=== PATIENT | male | born 1940 | race African-American/Black ===

== ENCOUNTER 2016-08-19 11:46 | Inpatient (IN) ==
[2016-08-19] MEDS ORDERED: VANCOMYCIN INJ 1,000 MG in SODIUM CHLORIDE 0.9% 250 ML IV STA (12:28)
[2016-08-19] MEDS ORDERED: VANCOMYCIN 1,000 MG VIAL ONE (12:32)
[2016-08-19] MEDS ORDERED: SODIUM CHLORIDE 0.9% 250 ML IV ONE (12:33)
[2016-08-19 12:38] LABS: Basophils % 0.3 % (0.0-0.8); Eosinophils # 0.1 10*3/uL (0.0-0.87); Eosinophils % 1.2 % (0.00-10.9); Hemoglobin 11.2 GM/DL (14.0-18.0); Immature Granulocytes % 0.8 %; Immature Granulocytes Absolute 0.06 #; Lymphocytes # 0.2 10*3/uL (1.4-4.0); Lymphocytes % 2.5 % (21.2-54.2); Mean Corpuscular HGB Conc 33.9 GM/DL (32-36); Mean Corpuscular Hemoglobin 32 PG (27-34); Mean Corpuscular Volume 95.1 FL (87-102); Mean Platelet Volume 12.5 FL (9.6-12.0); Monocytes # 0.5 10*3/uL (0.11-0.8); Monocytes % 6.4 % (1.7-12.7); Neutrophils # 6.6 10*3/uL (1.4-7.4); Neutrophils % 88.8 % (38.7-73.9); Platelet Count 129 T/CUMM (130-400); Red Blood Count 3.47 MC/CUMM (3.8-5.5); Red Cell Distribution Width 14.1 % (9.3-17.3); White Blood Count 7.5 T/CUMM (4-12)
--- NOTE | 2016-08-19 12:53 | XRay Report ---
XR chest 1V portable Indication: Preop respiratory evaluation. Comparison: None. Technique: Portable AP chest was performed. Findings: Heart size is mildly to moderately enlarged. [id number] ectasia of the thoracic aorta is demonstrated. Elevation left hemidiaphragm is noted. The lungs are clear for degree of inspiration and technique of image acquisition utilized. Bones and soft tissues demonstrate no evidence of acute pathology. Impression: 1. No evidence of acute pathology. 08/19/2016 12:49 PM PROCEDURE INTERPRETED AT [facility] DEPARTMENT OF RADIOLOGY Final Report Signed by: Dr. Boni Hannah
[2016-08-19 12:58] LABS: Hypochromasia Slight
[2016-08-19 13:06] LABS: Albumin 2.5 G/DL (3.4-5.0); Bilirubin,Total 0.9 MG/DL (0.2-1.0); Calcium 9.2 MG/DL (8.5-10.1); Osmolality,Calculated 297.8 MOS/KG (273-304); Potassium 5.2 MMOL/L (3.5-5.1)
[2016-08-19 13:08] LABS: Lactic Acid 1.6 MMOL/L (0.4-2.0)
--- NOTE | 2016-08-19 13:11 | Emergency Department Note ---
IEd Manpreet, am scribing for, and in the presence of, Ivory Mahan DO 12: 25. INegrito Debra, DO, personally performed the services described in this documentation, ascribed by Migue Ward in my presence, and it is both accurate and complete . Arrival - Arrival Chief Complaint: Extremity Problem ED Nursing Triage Note: pt has an infection to rt lower leg and to the bottom of lt foot. home health comes once a week to change dressing. pt states wounds have been like this for a week Mode of Arrival: Stretcher Limitations: No Limitations Source: Patient, Family - History of Present Illness HPI Narrative: Pt is a 76 y/o male, with PMHx of CAD, who presents to the ED with CC of infection to his right lower leg and bottom of the right foot. Pt states the wound has been like that for a week. Pt is visited by home health and changes the dressing once a week. Pt's accompanied by his niece who states the Pt was able to walk a month ago. No other pains/complaints reported to ED. Onset (ago): week(s) Consistency: constant Severity: moderate, severe Severity scale (1-10): 5 Allergies/Adverse Reactions: Allergies Allergy/AdvReac Type Severity Reaction Status Date / Time cephalexin [From Keflex] Allergy Unknown/Unable Verified 08/19/16 12:02 to obtain Penicillins Allergy Unknown/Unable Verified 08/19/16 12:02 to obtain Sulfa (Sulfonamide Allergy Unknown/Unable Verified 08/19/16 12:02 Antibiotics) to obtain Home Medications: Home Medications Medication Instructions Recorded Confirmed Type Aspirin EC Tab 81 mg PO DAILY 08/19/16 08/19/16 History Aspirin/Caffeine [Bc Powder Packet] 1 each PO QOTHER DAY PRN 08/19/16 08/19/16 History Colchicine [Colcrys] 0.6 mg PO DAILY 08/19/16 08/19/16 History Doxazosin Mesylate 8 mg PO DAILY 08/19/16 08/19/16 History Furosemide Tab [Lasix Tab] 40 mg PO DAILY 08/19/16 08/19/16 History Hydrocodone/Acetaminophen 1 - 2 each PO Q6H PRN 08/19/16 08/19/16 History [Hydrocodon-Acetaminoph 7.5-325] hydroCHLOROthiazide 25 mg PO DAILY 08/19/16 08/19/16 History [Hydrochlorothiazide] Review of System - Review of System 12 point system: reviewed and no additional remarkable complaints except as stated - Review of System Constitutional: Absent: chills, diaphoresis, fever Respiratory: Absent: cough, respiratory distress Cardiovascular: Absent: dyspnea on exertion Gastrointestinal: Absent: abdominal pain, nausea, vomiting Skin: Present: change in color, other (Infection to R lower leg). Absent: pruritus Neurological: Absent: headache, weakness, numbness, paresthesias Medical,Surgical,& Family Hx - Medical History Cardio: History of: CAD Rheumatology: History of;: Gout - Social History Smoking Status: Unknown if ever smoked Frequency of Alcohol Use: Unknown Type of Drug Use: Unknown Exam Vital Signs: Vital Signs Temperature 99 F 08/19/16 11:53 Pulse Rate 91 H 08/19/16 12:50 Respiratory Rate 17 08/19/16 12:50 Blood Pressure 155/108 08/19/16 12:50 O2 Sat by Pulse Oximetry 98 08/19/16 11:53 - General General appearance: alert - Head Head exam: Present: atraumatic, normocephalic, normal inspection - Eye Eye exam: Present: normal appearance, PERRL, EOMI - ENT ENT exam: Present: normal exam, normal oropharynx, mucous membranes moist, TM's normal bilaterally - Neck Neck exam: Present: normal inspection, full ROM, trachea midline. Absent: tenderness, thyromegaly - Chest Chest inspection: Present: normal inspection, symmetric chest wall rise. Absent : tenderness - Respiratory Respiratory exam: Present: normal lung sounds bilaterally. Absent: accessory muscle use, respiratory distress - Cardiovascular Cardiovascular exam: Present: regular rate, normal rhythm, normal heart sounds. Absent: murmur, rubs, gallop - Abdominal Exam Abdominal exam: Present: soft, normal bowel sounds. Absent: distention, diminished bowel sounds - Extremities Exam Extremities exam: Present: pedal edema (Bilat Pedal edema). Absent: normal inspection - Back Exam Back exam: Present: normal inspection, full ROM. Absent: tenderness - Neurological Exam Neurological exam: Present: alert, oriented X3, CN II-XII intact, reflexes normal - Psychiatric Psychiatric exam: Present: normal affect, normal mood - Skin Skin exam: Present: warm. Absent: normal color (Left LE infection) Results - Labs CBC & BMP: 08/19/16 12:19 08/19/16 12:19 Lab Results: I have reviewed the patients labs Labs: Laboratory Tests 08/19/16 12:19 WBC 7.5 RBC 3.47 L Hgb 11.2 L Hct 33.0 L Plt Count 129 L MPV 12.5 H Neut % (Auto) 88.8 H Lymph % (Auto) 2.5 L Lymph # (Auto) 0.2 L Laboratory Tests 08/19/16 08/19/16 12:19 12:19 Hypochromasia Slight Sodium 137 Potassium 5.2 H Chloride 104 Carbon Dioxide 20 L Anion Gap 18.2 H BUN 84 H Creatinine 2.50 H BUN/Creatinine Ratio 33.00 H ALT 12 L Total Protein 6.0 L Albumin 2.5 L Albumin/Globulin Ratio 0.7 L - Diagnostic Findings Procedure: Chest x-ray: report reviewed by me (No evidence of acute pathology.)
--- NOTE | 2016-08-19 13:19 | Ultrasound Report ---
US venous doppler LE BI Indication: Lower extremity swelling and pain. Comparison: None. Technique: Using a transcutaneous probe, grayscale, spectral Doppler, and color Doppler images of the bilateral lower extremity venous structures were captured and stored. Grayscale images prior to and following compression were obtained. Interrogated venous structures include the bilateral common femoral vein, superficial femoral vein (proximal, mid, and distal), and popliteal vein. Findings: There is no evidence of thrombus within the interrogated venous structures. The greater saphenous veins bilaterally ablated. The interrogated venous segments demonstrate presence of both color flow and spectral flow. Impression: 1. No evidence of venous thrombosis. 08/19/2016 1:16 PM PROCEDURE INTERPRETED AT [facility] DEPARTMENT OF RADIOLOGY Final Report Signed by: Dr. Boni Hannah
--- NOTE | 2016-08-19 14:53 | General Surgery Consult Note ---
Assessment and Plan - Time spent with patient Time spent with patient: Greater than 30 minutes (1) gangrene right lower extremity Status: Acute Assessment and plan: 76AAM w history of htn and gout admitted by hospitalist w gangrene and acute renal failure. ordered xr of bilateral lower ext to check for bone involvement and it is pending. pt will need surgery for debridement and possibly even amputation depending on how extensive the infection is. pt is allergic to pcn so vanc will be used for now. will consult pharmacy to assist w dosing. dr elam will see and examine pt and further recs to follow. Current Visit: Yes (2) Hyperkalemia Status: Acute Current Visit: Yes (3) Acute kidney injury Status: Acute Current Visit: Yes History of Present Illness Chief complaint: right leg pain History of present illness: Mr. Romano is a 76 year old male w history of htn and gout admitted by hospitalist service w gangrene of RLE, acute renal failure and hyperkalemia. pt states his foot has been hurting for about a week and he got to where he couldnt walk very well yesterday. he had a vein ablation by dr coronado about 2 years ago and has had trouble w BLE swelling since then. he went to see dr Reich at the wound center last week and he wanted to "put some boots on them". pt has a low grade fever, and mild tachycardia w htn 155/108 now. upon exam, he has a pungent odor coming from his RLE w wet gangrene, muliple wounds circumferentially, and necrotic areas to lower leg. he has erythema from foot to lower leg and chronic pitting edema. he's also noted to have an irregular heartbeat on exam that pt denies knowing about. his wbc are normal, anemia at 11 /32, platelets low at 129, K elevated at 5.2 and creatinine elevated at 2.5. pt denies SHEARER, dysphagia, blurred vision, dizziness, CP, SOB, abdominal pain, constipation or diarrhea. dr elam has been consulted to evaluate. Home Medications Medication Instructions Recorded Confirmed Type Aspirin EC Tab 81 mg PO DAILY 08/19/16 08/19/16 History Aspirin/Caffeine [Bc Powder Packet] 1 each PO QOTHER DAY PRN 08/19/16 08/19/16 History Colchicine [Colcrys] 0.6 mg PO DAILY 08/19/16 08/19/16 History Doxazosin Mesylate 8 mg PO DAILY 08/19/16 08/19/16 History Furosemide Tab [Lasix Tab] 40 mg PO DAILY 08/19/16 08/19/16 History Hydrocodone/Acetaminophen 1 - 2 each PO Q6H PRN 08/19/16 08/19/16 History [Hydrocodon-Acetaminoph 7.5-325] hydroCHLOROthiazide 25 mg PO DAILY 08/19/16 08/19/16 History [Hydrochlorothiazide] Allergies Allergy/AdvReac Type Severity Reaction Status Date / Time cephalexin [From Keflex] Allergy Unknown/Unable Verified 08/19/16 12:02 to obtain Penicillins Allergy Unknown/Unable Verified 08/19/16 12:02 to obtain Sulfa (Sulfonamide Allergy Unknown/Unable Verified 08/19/16 12:02 Antibiotics) to obtain Medical,Surgical,& Family Hx - Medical History Cardio: History of: CAD Rheumatology: History of;: Gout - Surgical History Cardiac Surgeries: Patient Denies: Cardiac Surgery - Family History Family History: Reports;: Family Heart Disease - Social History Smoking Status: Unknown if ever smoked Frequency of Alcohol Use: Unknown Type of Drug Use: Unknown Marital Status: Single Lives With:: Significant Other Functional capacity: uses cane/walker Review of systems: a complete 10 system ROS was obtained and pertinent positives and negatives per hpi Exam - Constitutional Vitals: Period Temp Pulse Resp BP Sys/Sherman Pulse Ox Last 24 Hr 99 F-99 F 91-102 17-18 133-159/83-108 98-98 Exam: 76AAM, NAD, alert and oriented chest clear cv irreg irreg abd soft nt ext w bilateral pitting edema, RLE w necrotic wound w wet gangrene, erythema, pulses unable to palpate Results - Labs CBC & BMP: 08/19/16 12:19 08/19/16 12:19 Lab Results: I have reviewed the past 24 hour labs - Diagnostic Findings Procedure: Chest x-ray: report reviewed by me (no acute process)
[2016-08-19] MEDS ORDERED: VANCOMYCIN INJ 1,000 MG in SODIUM CHLORIDE 0.9% 250 ML IV ONE (15:00)
--- NOTE | 2016-08-19 15:30 | XRay Report ---
XR tibia fibula BI Indication: Gangrene. Bilateral legs 2 views each, 4 views total: Extensive vascular calcinosis and extensive phleboliths are present throughout the soft tissues of both legs. Soft tissue swelling significant as well. No acute fracture shown on either side. No dislocation. No periostitis or bony destruction identified. Impression: Soft tissue swelling, vascular calcinosis and extensive calcified phleboliths throughout both legs. PROCEDURE INTERPRETED AT [facility] DEPARTMENT OF RADIOLOGY Final Report Signed by: Rajiv Lozada M.D.
--- NOTE | 2016-08-19 15:34 | XRay Report ---
XR foot 2V BI Indication: Gangrene. Right foot 2 views: Chronic erosive changes of the head of the fifth metatarsal is present. Primus varus hallux valgus is noted. Repetitive stress fracture of the midshaft second metatarsal is present. Entire foot is osteopenic, especially on the MTP joint line. Severe soft tissue swelling is present. Flattening of Boehler's angle noted. Impression: 1. Charcot joint changes of the foot. 2. Chronic erosion of the head of the fifth metatarsal. 3. Primus varus hallux valgus. 4. Repetitive stress fracture midshaft second metatarsal. Left foot 2 views: Marked osteopenia fluid is present similar to the right side, especially along the MTP joint line. Primus varus hallux valgus first toe is significant as well. Loss of cortical definition at the head of the fifth metatarsal suggests possible infection. See no acute fracture although severe soft tissue swelling and extensive phleboliths and vascular calcinosis involves the left foot, much worse than the right. Flattening of Boehler's angle noted. Impression: 1. Charcot joint. 2. Severe arthritic changes first MTP joint. 3. Suspicious erosive changes of the head of the fifth metatarsal. Suspect active osteolysis. 4. Severe soft tissue swelling. PROCEDURE INTERPRETED AT [facility] DEPARTMENT OF RADIOLOGY Final Report Signed by: Rajiv Lozada M.D.
--- NOTE | 2016-08-19 15:56 | Hospitalist History & Physical ---
Assessment and Plan (1) Hypertension Status: Acute Current Visit: Yes (2) Acute kidney injury Status: Acute Current Visit: Yes (3) Hyperkalemia Status: Acute Current Visit: Yes (4) gangrene right lower extremity Status: Acute Assessment and plan: We are admitting the patient our service. Patient does have an irregular rhythm although it is not A. fib. He is throwing frequent PVCs. Need to make sure that magnesium is been checked on him. Surgery has already seen him. Patient does need debridement. Patient has allergy to penicillin and cephalosporins vancomycin seems appropriate in this situation. Provide provide gentle hydration to him Current Visit: Yes History of Present Illness Chief complaint: Lower extremity wounds History of present illness: Mr. Romano is a 76 year old male who reports past medical history of lower extremity edema and hypertension presents to our hospital today. Patient is a poor historian. He reports that he had some procedure done by Dr. Daniel in an effort to decrease his lower extremity edema couple years ago. Seem like it made it worse according to the patient. He has been staying with some family members for the past couple days and they noticed that his lower extremity swelling and had a foul odor. Patient sees a physician at the wound care clinic we were consulted to admit him. Home Medications Medication Instructions Recorded Confirmed Type Aspirin EC Tab 81 mg PO DAILY 08/19/16 08/19/16 History Aspirin/Caffeine [Bc Powder Packet] 1 each PO QOTHER DAY PRN 08/19/16 08/19/16 History Colchicine [Colcrys] 0.6 mg PO DAILY 08/19/16 08/19/16 History Doxazosin Mesylate 8 mg PO DAILY 08/19/16 08/19/16 History Furosemide Tab [Lasix Tab] 40 mg PO DAILY 08/19/16 08/19/16 History Hydrocodone/Acetaminophen 1 - 2 each PO Q6H PRN 08/19/16 08/19/16 History [Hydrocodon-Acetaminoph 7.5-325] hydroCHLOROthiazide 25 mg PO DAILY 08/19/16 08/19/16 History [Hydrochlorothiazide] Allergies Allergy/AdvReac Type Severity Reaction Status Date / Time cephalexin [From Keflex] Allergy Unknown/Unable Verified 08/19/16 12:02 to obtain Penicillins Allergy Unknown/Unable Verified 08/19/16 12:02 to obtain Sulfa (Sulfonamide Allergy Unknown/Unable Verified 08/19/16 12:02 Antibiotics) to obtain Medical,Surgical,& Family Hx - Medical History Cardio: History of: CAD Rheumatology: History of;: Gout - Surgical History Cardiac Surgeries: Patient Denies: Cardiac Surgery Orthopedic Surgeries: Surgical HX of;: Orthopedic Surgery - Family History Family History: Reports;: Family Heart Disease, Family Hypertension, Family Stroke - Social History Smoking Status: Never smoker Frequency of Alcohol Use: Unknown Type of Drug Use: Unknown 12 point system: reviewed and no additional remarkable complaints except as stated Exam - Constitutional Vitals: Period Temp Pulse Resp BP Sys/Sherman Pulse Ox Last 24 Hr 98.4 F-99 F 87-102 16-18 133-159/56-108 98-99 General appearance: normal weight - Head Head exam: Present: normal inspection - Eye Eye exam: Present: other ([place] sclera) Pupils: Present: ANANT - ENT ENT exam: Present: normal exam - Neck Neck exam: Present: normal inspection - Respiratory Respiratory exam: Present: clear to auscultation bilaterally - Cardiovascular Cardiovascular exam: Present: irregular rhythm - GI/Abdominal GI/Abdominal exam: Present: normal bowel sounds - Extremities Exam Extremities exam: Present: edema (Patient has a necrotic wound and wet gangrene sensation is intact), other - Neurological Exam Neurological exam: Present: alert, oriented X3 Results - Labs CBC & BMP: 08/19/16 12:19 08/19/16 12:19 Quality Measures - VTE Contraindication to Pharmacological VTE Prophylaxis: High Risk of Bleeding Contraindication to Mechanical VTE Prophylaxis: Vascular Ulceration
[2016-08-19] MEDS ORDERED: CEFTAROLINE 400 MG in SODIUM CHLORIDE 0.9% 100 ML IV SCH (16:00)
[2016-08-19] MEDS: DOXAZOSIN 4 MG TABLET PO SCH (16:58)
[2016-08-19] MEDS: COLCHICINE 0.6 MG TABLET PO SCH (16:58)
[2016-08-19] MEDS: ASPIRIN EC 81 MG TABLET PO SCH (17:00)
[2016-08-19] MEDS: SODIUM HYPOCHLORITE 0.25% IRRIG 473 ML BOTTLE TOP SCH (17:02)
[2016-08-19] MEDS: SODIUM ACETATE 50 MEQ in SODIUM CHLORIDE 0.45% 1,000 ML IV SCH (18:37)
[2016-08-20 06:00] LABS: Basophils % 0.1 % (0.0-0.8); Eosinophils # 0.1 10*3/uL (0.0-0.87); Eosinophils % 1.8 % (0.00-10.9); Hematocrit 29.9 VOL% (42.0-52.0); Hemoglobin 9.9 GM/DL (14.0-18.0); Immature Granulocytes % 0.9 %; Immature Granulocytes Absolute 0.07 #; Lymphocytes # 0.3 10*3/uL (1.4-4.0); Lymphocytes % 3.8 % (21.2-54.2); Mean Corpuscular HGB Conc 33.1 GM/DL (32-36); Mean Corpuscular Hemoglobin 31 PG (27-34); Mean Corpuscular Volume 94.3 FL (87-102); Monocytes # 0.7 10*3/uL (0.11-0.8); Monocytes % 8.9 % (1.7-12.7); Neutrophils # 6.5 10*3/uL (1.4-7.4); Neutrophils % 84.5 % (38.7-73.9); Platelet Count 122 T/CUMM (130-400); Red Blood Count 3.17 MC/CUMM (3.8-5.5); Red Cell Distribution Width 13.9 % (9.3-17.3); White Blood Count 7.7 T/CUMM (4-12)
[2016-08-20 06:26] LABS: Eosinophils 1 % (0-10); Hypochromasia 1+; Lymphocytes 2 % (20-55); Segmented Neutrophils 91 % (50-85); Total Cells Counted 100
[2016-08-20 06:27] LABS: Ovalocytes Slight; Platelet Estimate Adequate
[2016-08-20 06:28] LABS: Microcytosis Slight
[2016-08-20 06:30] LABS: Calcium 8.9 MG/DL (8.5-10.1); Magnesium 2.1 MG/DL (1.8-2.4); Osmolality,Calculated 298.3 MOS/KG (273-304); Potassium 4.8 MMOL/L (3.5-5.1)
[2016-08-20] MEDS ORDERED: LIDOCAINE 100 MG/5 ML SYRINGE ONE (06:35)
[2016-08-20] MEDS ORDERED: METOPROLOL TARTRATE 5 MG/5 ML VIAL IV ONE (06:35)
[2016-08-20] MEDS ORDERED: PHENYLEPHRINE 1 MG/10 ML SYRINGE IV ONE (06:35)
[2016-08-20] MEDS ORDERED: PROPOFOL 200 MG/20 ML VIAL IV ONE (06:35)
[2016-08-20] MEDS ORDERED: LIDOCAINE 1%/EPI INJ 20 ML VIAL ONE (06:42)
[2016-08-20] MEDS ORDERED: BUPIVACAINE MPF 0.25% /EPI 30 ML VIAL ONE (06:42)
[2016-08-20] MEDS ORDERED: LACTATED RINGERS 1,000 ML IV SCH (07:00)
[2016-08-20] MEDS ORDERED: BUPIVACAINE 0.25% 50 ML VIAL ONE (07:29)
--- NOTE | 2016-08-20 08:09 | EKG Report ---
Stationary ECG Study [facility] ER Test Date: 08/19/2016 12:26:56 PM Pat Name: EDD GARDNER Department: Room: Gender: M Hand Cultivator: : 1940 Requested by: Ivory Mahan Order Number: [id number] Reading MD: MARK VITALE Intervals [place] Rate: 97 P: 3 GA: 201 QRS: -2 QRSD: 106 T: 54 QT: 335 QTc: 390 Interpretive Statements SINUS RHYTHM WITH FREQUENT VENTRICULAR PREMATURE COMPLEXES Nonspecific repol abnorm Electronically Signed On 08-20-16 08:07:53 CDT by MARK VITALE [email or web address]
[2016-08-20] MEDS ORDERED: SEVOFLURANE 1 UNIT/15 MINUTE INH ONE (08:30)
[2016-08-20] MEDS ORDERED: MIDAZOLAM 2 MG/2 ML VIAL ONE (08:31)
[2016-08-20] MEDS ORDERED: fentaNYL 100 MCG/2 ML VIAL ONE (08:31)
[2016-08-20] MEDS ORDERED: ONDANSETRON 4 MG/2 ML VIAL IV PRN (08:37)
[2016-08-20] MEDS ORDERED: HYDROmorphone 2 MG/1 ML VIAL ONE (08:41)
[2016-08-20] MEDS ORDERED: ONDANSETRON 4 MG/2 ML VIAL ONE (08:41)
[2016-08-20] MEDS: HYDROmorphone 2 MG/1 ML VIAL IV PRN ×2 (08:41→08:46)
--- NOTE | 2016-08-20 09:13 | Anesthesia Post-Op ---
Anesthesia Post OP - Post Ansesthetic Evaluation Patient seen in post op: Yes Resp: within normal limits CV: within normal limits Mental: within normal limits Temp: within normal limits [id number]: within normal limits Nausea and Vomiting: within normal limits Pain: within normal limits
[2016-08-20] MEDS: DOXAZOSIN 4 MG TABLET PO SCH (09:35)
[2016-08-20] MEDS: COLCHICINE 0.6 MG TABLET PO SCH (09:35)
[2016-08-20] MEDS: ASPIRIN EC 81 MG TABLET PO SCH (09:36)
[2016-08-20] MEDS: SODIUM HYPOCHLORITE 0.25% IRRIG 473 ML BOTTLE TOP SCH (09:51)
[2016-08-20] MEDS: CEFTAROLINE 400 MG in SODIUM CHLORIDE 0.9% 100 ML IV SCH ×2 (10:29→21:25)
--- NOTE | 2016-08-20 10:59 | Operative Note ---
Date of procedure: 08/20/16 Pre-op diagnosis: Necrotic infected wounds right lower extremity Post-op diagnosis: same Procedure: Preoperative diagnosis Necrotic infected wounds right lower extremity Postoperative diagnosis Same Procedures performed 1. Incision and drainage of anterior right lower leg abscess with cultures 2. Excisional debridement of necrotic skin and subcutaneous tissue over right anterior leg measuring 50 cm 3. Excisional debridement of necrotic skin and subcutaneous tissue over right posterior lower leg wound measuring 20 cm Findings There was purulent necrotic tissue on the anterior right lower leg wound and cultures were sent to the lab. Excisional debridement was performed on both the anterior right lower leg wound in the posterior right lower leg wound with the measurements listed above. Debridement was performed down to the periosteum of the tibia and did not appear to involve the tibia itself. The tissue was fairly healthy and viable at the wound edges. It did not involve any fascia. Complications None apparent Specimen 1. Cultures from right lower leg abscess 2. Tissue culture from right lower leg necrotic tissue Indications Necrotic infected wounds right lower extremity Blood loss 10 mL Anesthesia GETA Description of procedure The patient was taken to the operating room and transferred to the operating table in the supine position. Pressure points were padded and SCDs placed the left lower extremity. General LMA anesthesia was administered. The right lower leg was prepped with Betadine and draped sterilely. Timeout was called. Incision and drainage was performed of the right anterior lower leg abscess and pus was obtained and cultures were sent from this to the lab. Excisional debridement was then performed measuring 50 cm of skin and subcutaneous tissue using electrocautery and scissors. This was done down to the periosteum of the tibia which does not appear involved and was able to be debrided back to what appeared to be healthy bleeding tissue and subcutaneous fat. No fascia was involved. Excisional debridement was then also performed on the right posterior leg wound measuring 20 cm in similar fashion to mentioned previously. This was done with scalpel and scissors. A dressing was applied with Dakin's soaked 4 x 4's and cast padding and Coban. The wounds on the left leg were dry and there was a clean noninfected eschar over the left heel. This was also addressed. The patient was awakened from anesthesia and transferred to recovery. Postoperative plan Continue wound care and antibiotics Anesthesia: GETA Surgeon / Physician: James Manuel Estimated blood loss: minimal Specimens: other (cultures) Condition: stable Disposition: PACU Results - Labs CBC & BMP: 08/20/16 05:38 08/20/16 05:38 Discharge Plan - Discharge Medications No Action hydroCHLOROthiazide [Hydrochlorothiazide] 25 mg PO DAILY Hydrocodone/Acetaminophen [Hydrocodon-Acetaminoph 7.5-325] 1 - 2 each PO Q6H PRN PRN Reason: Pain Furosemide Tab [Lasix Tab] 40 mg PO DAILY Doxazosin Mesylate 8 mg PO DAILY Colchicine [Colcrys] 0.6 mg PO DAILY Aspirin/Caffeine [Bc Powder Packet] 1 each PO QOTHER DAY PRN PRN Reason: Pain Aspirin EC Tab 81 mg PO DAILY - Follow Up or Referral - Forms/Instructions
--- NOTE | 2016-08-20 11:40 | Hospitalist Progress Note ---
Assessment and Plan (1) Hyperkalemia Status: Acute Assessment and plan: 1)hyperkalemia- resolved 2)TRESSA- improving. baseline unknown. continue IVF 3)anemia- unmasked with hydration. monitor. 4)HTN- controlled. 5)gangrene- I and D of both lower extremities done today. On Teflaro now. Current Visit: Yes (2) gangrene right lower extremity Status: Acute Current Visit: Yes (3) Acute kidney injury Status: Acute Current Visit: Yes (4) Hypertension Status: Acute Current Visit: Yes Hospitalist: Subjective Interval history: Mr Romano is doing well post op. He denies pain. His family is in the room, noone had questions. Exam - Constitutional Vitals: Period Temp Pulse Resp BP Sys/Sherman Pulse Ox Last 24 Hr 98.0 F-99.1 F 81-104 16-20 108-159/53-108 93-100 General appearance: normal weight, no acute distress - Eye Eye exam: Present: EOMI. Absent: scleral icterus - Respiratory Respiratory exam: Present: clear to auscultation bilaterally - Cardiovascular Cardiovascular exam: Present: regular rate and rhythm - GI/Abdominal GI/Abdominal exam: Present: normal bowel sounds, soft. Absent: tenderness - Extremities Exam Extremities exam: Present: other (both lower extremities wrapped/dry.) Results - Labs CBC & BMP: 08/20/16 05:38 08/20/16 05:38 Lab Results: I have reviewed the past 24 hour labs Quality Measures - VTE Contraindication to Pharmacological VTE Prophylaxis: High Risk of Bleeding Contraindication to Mechanical VTE Prophylaxis: Vascular Ulceration
[2016-08-20] MEDS: SODIUM ACETATE 50 MEQ in SODIUM CHLORIDE 0.45% 1,000 ML IV SCH (15:54)
[2016-08-20] MEDS ORDERED: VANCOMYCIN INJ 1,500 MG in SODIUM CHLORIDE 0.9% 500 ML IV SCH (16:00)
--- NOTE | 2016-08-20 16:57 | Hospitalist Progress Note ---
Hospitalist: Subjective Interval history: Patient is sleepy. While awake he presents coherent medical history. His and friend are at bedside at the time of my interview and exam this morning. Exam - Constitutional Vitals: Period Temp Pulse Resp BP Sys/Sherman Pulse Ox Last 24 Hr 96.9 F-99.1 F 61-104 16-20 108-159/53-107 92-100 Results - Labs CBC & BMP: 08/20/16 05:38 08/20/16 05:38 Quality Measures - VTE Contraindication to Pharmacological VTE Prophylaxis: High Risk of Bleeding Contraindication to Mechanical VTE Prophylaxis: Vascular Ulceration Specialty Discharge - Follow Up or Referrals Follow up with: James Manuel MD [Physician] -
[2016-08-21 07:06] LABS: Calcium 8.4 MG/DL (8.5-10.1); Osmolality,Calculated 291.5 MOS/KG (273-304); Potassium 4.9 MMOL/L (3.5-5.1)
--- NOTE | 2016-08-21 07:59 | Hospitalist Progress Note ---
Assessment and Plan - Time spent with patient Time spent with patient: Less than 30 minutes (1) Right lower extremity necrotic wounds Status: Acute Assessment and plan: Patient is currently on IV antibiotic therapy. He was taken to the OR and underwent incision and drainage as well as excisional debridement of right lower extremity wounds by Dr. Manuel. Continue antibiotics and postop wound care. Current Visit: Yes (2) Hyperkalemia Status: Acute Assessment and plan: Potassium is 4.9 today. We will continue to follow. Current Visit: Yes (3) Acute kidney injury Status: Acute Assessment and plan: Improve with hydration from 2.5-1.8 today. Continue hydration and avoidance of nephrotoxic insults. Current Visit: Yes (4) Hypertension Status: Chronic Assessment and plan: Currently well controlled. Continue current regimen. Current Visit: Yes Qualifiers: Hypertension type: essential hypertension Qualified Code(s): I10 - Essential (primary) hypertension Hospitalist: Subjective Interval history: Chart reviewed and patient examined. Patient has no complaints of chest pain, shortness breath, abdominal pain, nausea, vomiting, diarrhea. Appetite is good. He does complain of some pain in his lower extremities left greater than right. Exam - Constitutional Vitals: Period Temp Pulse Resp BP Sys/Sherman Pulse Ox Last 24 Hr 96.9 F-98.3 F 51-94 16-20 116-159/60-107 92-100 General appearance: no acute distress - Head Head exam: Present: normocephalic, atraumatic - Eye Eye exam: Present: EOMI Pupils: Present: ANANT - ENT ENT exam: Present: normal exam - Neck Neck exam: Present: normal inspection - Respiratory Respiratory exam: Present: clear to auscultation bilaterally. Absent: rales, rhonchi, wheezes - Cardiovascular Cardiovascular exam: Present: regular rate and rhythm. Absent: systolic murmur , tachycardia - GI/Abdominal GI/Abdominal exam: Present: normal bowel sounds, soft. Absent: mass, tenderness - Extremities Exam Extremities exam: Present: other (Dressing of lower extremities bilaterally). Absent: calf tenderness - Back Exam Back exam: Present: normal inspection - Neurological Exam Neurological exam: Present: alert, oriented X3, CN II-XII intact. Absent: motor sensory deficit - Psychiatric Psychiatric exam: Present: normal affect, normal mood. Absent: agitated, anxious - Skin Skin exam: Present: warm, dry. Absent: erythema Results - Labs CBC & BMP: 08/20/16 05:38 08/21/16 05:40 Lab Results: I have reviewed the past 24 hour labs Quality Measures - VTE Contraindication to Pharmacological VTE Prophylaxis: High Risk of Bleeding Contraindication to Mechanical VTE Prophylaxis: Vascular Ulceration Specialty Discharge - Follow Up or Referrals Follow up with: James Manuel MD [Physician] -
[2016-08-21] MEDS ORDERED: COLLAGENASE OINT 30 GM TUBE TOP ONE (09:16)
[2016-08-21] MEDS: ASPIRIN EC 81 MG TABLET PO SCH (09:52)
[2016-08-21] MEDS: DOXAZOSIN 4 MG TABLET PO SCH (09:52)
[2016-08-21] MEDS: COLCHICINE 0.6 MG TABLET PO SCH (09:52)
[2016-08-21] MEDS: CEFTAROLINE 400 MG in SODIUM CHLORIDE 0.9% 100 ML IV SCH ×2 (09:53→22:40)
[2016-08-21] MEDS: SODIUM CHLORIDE 0.9% 1,000 ML IV SCH ×2 (09:56→17:15)
[2016-08-21] MEDS: SODIUM HYPOCHLORITE 0.25% IRRIG 473 ML BOTTLE TOP SCH (09:56)
--- NOTE | 2016-08-21 10:46 | Event Note ---
General Surgery Progress Note Chief complaint This patient is a 76-year-old man admitted with multiple extremity wounds treated with excisional debridement of necrotic infected tissue on the right leg on 08/20/2016 Interval history The patient is doing well today. His pain is less. He is afebrile. Physical exam The right lower extremity wounds are evaluated. The anterior wound still has some tissue that looks like it needs to slough but would probably work with dressing changes. The right posterior wound is healing well with good granulation tissue. The left heel wound is dry Labs Reviewed Imaging Reviewed Assessment and plan Continue wound care twice daily. Wound care orders have been written Continue antibiotics Follow-up cultures
--- NOTE | 2016-08-21 20:46 | Event Note ---
Rapid response was called on the patient for decreased LOC. We arrived at the room for evaluation. Patient will wake up on command blood pressure is running a little bit on the lower side. O2 sats were appropriate. Recommend patient be transferred to the ICU for at least overnight observation. Patient also needs a 250 cc normal saline bolus. Labs have been ordered.
[2016-08-21] MEDS ORDERED: SODIUM CHLORIDE 0.9% 250 ML IV ONE ×2 (20:49→21:44)
[2016-08-21 22:08] LABS: Albumin 1.9 G/DL (3.4-5.0); Bilirubin,Total 0.5 MG/DL (0.2-1.0); Calcium 8.1 MG/DL (8.5-10.1); Osmolality,Calculated 289.7 MOS/KG (273-304); Potassium 5.1 MMOL/L (3.5-5.1)
[2016-08-22] MEDS: NOREPINEPHRINE 8 MG in SODIUM CHLORIDE 0.9% 242 ML IV SCH ×3 (00:32→06:45)
[2016-08-22] MEDS: SODIUM CHLORIDE 0.9% 1,000 ML IV SCH (00:34)
[2016-08-22] MEDS: PHENYLEPHRINE DRIP 40 MG/250 ML PREMIX IV SCH ×2 (01:30→08:58)
[2016-08-22] MEDS ORDERED: PHENYLEPHRINE DRIP 40 MG/250 ML PREMIX IV ONE (01:34)
[2016-08-22 01:35] LABS: ABG Base Excess -11.4 MMOL/L (-2.5-2.5); ABG HCO3 12.8 MMOL/L (20-26); ABG Oxygen Saturation 99.5 % (95-100); ABG PCO2 24.8 MM HG (35-48); ABG PH 7.329 (7.35-7.45); ABG PO2 430.5 MM HG (80-95); ABG TCO2 13.5 MMOL/L (23-27); Allen Test Positive
[2016-08-22] MEDS ORDERED: PROPOFOL 1,000 MG/100 ML BOTTLE IV ONE (01:40)
[2016-08-22] MEDS ORDERED: ETOMIDATE 20 MG/10 ML VIAL IV ONE (01:41)
[2016-08-22] MEDS ORDERED: SUCCINYLCHOLINE 200 MG/10 ML VIAL ONE (01:43)
--- NOTE | 2016-08-22 02:10 | Event Note ---
Patient was requiring 2 pressors to maintain blood pressure then pulse was lost. Patient became unresponsive. Eyes were fixed. Chest compressions were started. 4 rounds of epi were given into bicarbs. Patient had a pulse restored after the last epi. Status was discussed with in the waiting room. Unsure if patient will survive the night.
--- NOTE | 2016-08-22 02:40 | Event Note ---
A-line placed to right radial 1 attempt. Positive Humphrey's test. Great waveform with bright red blood return. 18-gauge IV also started to left EJ 1 attempt great blood return flushes without difficulty.
[2016-08-22 02:49] LABS: Basophils % 0.2 % (0.0-0.8); Eosinophils # 0.1 10*3/uL (0.0-0.87); Eosinophils % 0.4 % (0.00-10.9); Hematocrit 32.9 VOL% (42.0-52.0); Hemoglobin 10.4 GM/DL (14.0-18.0); Immature Granulocytes % 4.5 %; Immature Granulocytes Absolute 0.61 #; Lymphocytes # 1.3 10*3/uL (1.4-4.0); Lymphocytes % 9.7 % (21.2-54.2); Mean Corpuscular HGB Conc 31.6 GM/DL (32-36); Mean Corpuscular Hemoglobin 32 PG (27-34); Mean Platelet Volume 12.8 FL (9.6-12.0); Monocytes # 0.7 10*3/uL (0.11-0.8); Monocytes % 4.8 % (1.7-12.7); Neutrophils % 80.4 % (38.7-73.9); Platelet Count 138 T/CUMM (130-400); Red Blood Count 3.29 MC/CUMM (3.8-5.5); Red Cell Distribution Width 14.2 % (9.3-17.3); White Blood Count 13.6 T/CUMM (4-12)
[2016-08-22] MEDS ORDERED: SODIUM BICARBONATE 50 MEQ/50 ML SYRINGE IV ONE (02:53)
[2016-08-22] MEDS ORDERED: NOREPINEPHRINE 4 MG/4 ML VIAL IV ONE (02:58)
[2016-08-22] MEDS ORDERED: PROPOFOL 1,000 MG/100 ML BOTTLE IV SCH (03:00)
[2016-08-22 03:11] LABS: Calcium 7.6 MG/DL (8.5-10.1)
[2016-08-22 03:12] LABS: Albumin 1.8 G/DL (3.4-5.0); Bilirubin,Total 0.8 MG/DL (0.2-1.0); Osmolality,Calculated 296.4 MOS/KG (273-304); Potassium 4.7 MMOL/L (3.5-5.1); Total Protein 4.8 G/DL (6.4-8.3)
[2016-08-22] MEDS ORDERED: DOPamine 800 MG/250 ML PREMIX IV SCH (03:30)
[2016-08-22 03:35] LABS: Band Neutrophils 2 % (0-10); Lymphocytes 11 % (20-55); Segmented Neutrophils 86 % (50-85); Total Cells Counted 100
[2016-08-22 03:36] LABS: Platelet Estimate Normal
--- NOTE | 2016-08-22 03:39 | Event Note ---
The. The patient's family has opted to make the patient a DNR orders have been entered to reflect this
[2016-08-22 04:52] LABS: Apearance,Urine CLOUDY (Clear); Bacteria,Urine Many /HPF (Few); Bilirubin,Urine Negative (Negative); Blood, Urine Negative (Negative); Glucose,Urine (UA) Negative (Negative); Ketones,Urine Negative (Negative); Nitrite,Urine Negative (Negative); Protein,Urine 30 MG/DL; Urine Color Amber (Yellow); Urine Specific Gravity 1.015 (1.001-1.035)
[2016-08-22 06:47] LABS: ABG Base Excess -9.8 MMOL/L (-2.5-2.5); ABG HCO3 16.7 MMOL/L (20-26); ABG PCO2 31.7 MM HG (35-48); ABG PH 7.301 (7.35-7.45); ABG TCO2 14.1 MMOL/L (23-27)
[2016-08-22] MEDS ORDERED: EPINEPHrine 1 MG/ML VIAL ONE ×2 (07:27→07:30)
--- NOTE | 2016-08-22 07:31 | Pulmonology Consult Note ---
Assessment and Plan - Time spent with patient Time spent with patient: Greater than 30 minutes (1) Cardiac arrest Status: Acute Assessment and plan: Patient s/p cardiac arrest last night, obtained ROSC, currently on 3 pressors. Having a lot of ectopy and runs of SVT, plan to wean down dopamine first, replace with epi gtt if needed. Consider cardiology consult Current Visit: Yes (2) Respiratory failure requiring intubation Status: Acute Assessment and plan: Patient maintaining sats well, will wean vent down as able. No reported history of lung disease Current Visit: Yes (3) gangrene right lower extremity Status: Acute Assessment and plan: surgery following. Unclear if his arrest is related to septic shock or primary cardiac dysfunction Current Visit: Yes History of Present Illness History of present illness: Mr. Romano is a 76 year old male Consulted this morning for vent management. Patient reportedly was admitted a few days ago for dry gangrene of the foot, had surgical debridement. Overnight last night, patient became unresponsive and suffered cardiac arrest (PEA vs asystole? no shocks given) Patient was intubated and started on multiple pressors. Currently this morning he does open his eyes to painful stimuli. His BP is maintained on levophed, dopamine and neosynephrine. He is satting well on the vent Home Medications Medication Instructions Recorded Confirmed Type Aspirin EC Tab 81 mg PO DAILY 08/19/16 08/19/16 History Aspirin/Caffeine [Bc Powder Packet] 1 each PO QOTHER DAY PRN 08/19/16 08/19/16 History Colchicine [Colcrys] 0.6 mg PO DAILY 08/19/16 08/19/16 History Doxazosin Mesylate 8 mg PO DAILY 08/19/16 08/19/16 History Furosemide Tab [Lasix Tab] 40 mg PO DAILY 08/19/16 08/19/16 History Hydrocodone/Acetaminophen 1 - 2 each PO Q6H PRN 08/19/16 08/19/16 History [Hydrocodon-Acetaminoph 7.5-325] hydroCHLOROthiazide 25 mg PO DAILY 08/19/16 08/19/16 History [Hydrochlorothiazide] Allergies Allergy/AdvReac Type Severity Reaction Status Date / Time cephalexin [From Keflex] Allergy Unknown/Unable Verified 08/19/16 12:02 to obtain Penicillins Allergy Unknown/Unable Verified 08/19/16 12:02 to obtain Sulfa (Sulfonamide Allergy Unknown/Unable Verified 08/19/16 12:02 Antibiotics) to obtain ROS unobtainable: due to endotracheal tube Exam (Pulmonay) H&P - Constitutional Vitals: Period Temp Pulse Resp BP Sys/Sherman Pulse Ox Last 24 Hr 97.6 F-98.4 F 56-142 10-29 62-183/38-107 73-100 General appearance: no acute distress, other - Head Head exam: Present: normal inspection - Respiratory Respiratory exam: Present: rhonchi - Cardiovascular Cardiovascular exam: Present: irregular rhythm - GI/Abdominal GI/Abdominal exam: Present: normal bowel sounds Medical,Surgical,& Family Hx - Medical History Cardio: History of: Cardiac Dysrhythmia (A-fib), CAD, Hypertension Neurology: No history of: Seizures HEENT: History of: Ear Problem ([place]) Rheumatology: History of;: Gout - Surgical History Cardiac Surgeries: Patient Denies: Cardiac Surgery Orthopedic Surgeries: Surgical HX of;: Orthopedic Surgery - Family History Family History: Reports;: Family Diabetes, Family Heart Disease, Family Hypertension, Family Stroke - Social History Smoking Status: Never smoker Frequency of Alcohol Use: Unknown Type of Drug Use: Unknown Results - Labs CBC & BMP: 08/22/16 02:23 08/22/16 02:24 Lab Results: I have reviewed the past 24 hour labs - Diagnostic Findings Procedure: Chest x-ray: image reviewed by me (reviewed image, ET tube in good position, large stomach bubble) Quality Measures - VTE Contraindication to Pharmacological VTE Prophylaxis: High Risk of Bleeding Contraindication to Mechanical VTE Prophylaxis: Vascular Ulceration Specialty Discharge - Follow Up or Referrals Follow up with: James Manuel MD [Physician] -
[2016-08-22 07:33] LABS: CKMB % 5.2 %
[2016-08-22 07:36] LABS: Troponin I Only 1.76 NG/ML (0.00-0.045)
--- NOTE | 2016-08-22 08:11 | XRay Report ---
Portable chest. Indication: Endotracheal tube placement. Comparison: August 19, 2016. The heart is enlarged with left ventricular hypertrophy. There is stable elevation of the left hemidiaphragm. The pulmonary vasculature is normal. No infiltrate, pneumothorax, or pleural effusion. An endotracheal tube has been placed and is in satisfactory position. Impression: Stable cardiomegaly. Satisfactory endotracheal tube placement. PROCEDURE INTERPRETED AT [facility] OF [facility] Final Report Signed by: Dr. Veronica Crawford
--- NOTE | 2016-08-22 08:45 | Event Note ---
General Surgery Progress Note Chief complaint This patient is a 76-year-old man admitted with multiple extremity wounds treated with excisional debridement of necrotic infected tissue on the right leg on 08/20/2016 Interval history The patient was transferred to the CCU overnight for hypotensive episode that ended in the hypotensive arrest treated with multiple rounds of ACLS but ultimately pulse was regained. He is on 3 pressors this morning. He does open his eyes to voice and sternal rub but does not follow commands. He is intermittently tachycardic up into the 170s. Physical exam The right lower extremity wounds are evaluated. The anterior wound still has some tissue that looks like it needs to slough but there is no evidence of a septic source in either his anterior posterior lower leg wounds. His posterior right lower leg wound is looking good with granulation tissue. The left leg is clean with a clean dry eschar over the heel. Again I see no evidence of sepsis source in the legs. Labs Reviewed Cultures show gram-negative rods but no speciation yet Imaging Reviewed Assessment and plan The patient had a critical episode overnight which I think is unrelated to the wounds on his extremities. I will defer to medicine for further workup and treatment. Continue wound care twice daily. Wound care orders have been written Continue antibiotics Follow-up cultures
[2016-08-22] MEDS: SODIUM HYPOCHLORITE 0.25% IRRIG 473 ML BOTTLE TOP SCH (08:58)
[2016-08-22] MEDS: DOXAZOSIN 4 MG TABLET PO SCH (08:58)
--- NOTE | 2016-08-22 09:04 | Hospitalist Progress Note ---
Assessment and Plan - Time spent with patient Time spent with patient: Less than 30 minutes (1) Cardiac arrest Status: Acute Assessment and plan: Patient is status post cardiac arrest. Record has been reviewed. Have discussed at length with family. He is now a DNR. Continue vent support and vasopressor support. Prognosis poor. Current Visit: Yes (2) Right lower extremity necrotic wounds Status: Acute Assessment and plan: Patient is currently on IV antibiotic therapy. He was taken to the OR and underwent incision and drainage as well as excisional debridement of right lower extremity wounds by Dr. Manuel. Continue antibiotics and postop wound care. 08/22/16: Continuing postop wound care and IV antibiotics. Dr. Manuel continues to follow. Current Visit: Yes (3) Hyperkalemia Status: Acute Assessment and plan: Potassium is 4.9 today. We will continue to follow. 08/22/16: Potassium is normal today continue to follow. Current Visit: Yes (4) Acute kidney injury Status: Acute Assessment and plan: Improve with hydration from 2.5-1.8 today. Continue hydration and avoidance of nephrotoxic insults. 08/22/16: Creatinine worsens today. Continue hydration. However with his hypotensive episodes and requirements for vasopressors 3 anticipate further consult in worsening of his creatinine. Current Visit: Yes (5) Hypertension Status: Chronic Assessment and plan: Currently well controlled. Continue current regimen. 08/22/16: All antihypertensive therapy has been withheld. He is currently hypotensive requiring 3 vasopressors. Current Visit: Yes Qualifiers: Hypertension type: essential hypertension Qualified Code(s): I10 - Essential (primary) hypertension Hospitalist: Subjective Interval history: Events from last night noted. Patient on ventilator requiring 3 vasopressors at this time. He has been made DNR. Have discussed at length with his family members in the waiting room and they are aware of his critical status and poor prognosis. Exam - Constitutional Vitals: Period Temp Pulse Resp BP Sys/Sherman Pulse Ox Last 24 Hr 97.6 F-98.4 F 56-142 10-29 62-183/38-107 73-100 General appearance: other (Intubated and ventilated currently in no acute distress) - Head Head exam: Present: normocephalic, atraumatic - Eye Eye exam: Present: EOMI Pupils: Present: ANANT - ENT ENT exam: Present: other (ET tube in place) - Neck Neck exam: Present: normal inspection - Respiratory Respiratory exam: Present: clear to auscultation bilaterally. Absent: rales, rhonchi, wheezes - Cardiovascular Cardiovascular exam: Present: regular rate and rhythm - GI/Abdominal GI/Abdominal exam: Present: normal bowel sounds, soft. Absent: mass, tenderness , rebound - Extremities Exam Extremities exam: Present: other (Dressing to lower extremities bilaterally) - Neurological Exam Neurological exam: Present: other (He does open his eyes spontaneously but does not obey simple commands. He does have a gag reflex. He does not withdraw extremities to noxious stimuli.) - Skin Skin exam: Present: dry. Absent: petechiae, rash Results - Labs CBC & BMP: 08/22/16 02:23 08/22/16 02:24 Lab Results: I have reviewed the past 24 hour labs - Diagnostic Findings Procedure: Chest x-ray: report reviewed by me Quality Measures - VTE Contraindication to Pharmacological VTE Prophylaxis: High Risk of Bleeding Contraindication to Mechanical VTE Prophylaxis: Vascular Ulceration Specialty Discharge - Follow Up or Referrals Follow up with: James Manuel MD [Physician] -
[2016-08-22] MEDS ORDERED: SODIUM CHLORIDE 0.9% 1,000 ML IV ONE (09:09)
[2016-08-22 09:49] LABS: Troponin I Only 2.43 NG/ML (0.00-0.045)
--- NOTE | 2016-08-22 09:52 | Discharge Summary ---
Hospital Course - Hospital Course Hospital Course: 76-year-old -[place] male who presented to the emergency room with lower extremity swelling in the presence of a foul odor. He was admitted and cultured and placed on empiric IV antibiotics. He was seen by general surgery and underwent incisional drainage of anterior right lower leg abscess as well as excisional debridement of necrotic skin and subcutaneous tissue over the right anterior leg and right posterior lower leg. He also had acute on chronic kidney injury which improved with hydration. He appeared to be improving however only night of 08/21 in electrical lineworker of 08/22 he had altered mental status with drop in his blood pressure was transferred to the ICU. He did require resuscitation events as well as vasopressor support, intubation and ventilatory support. After discussion with the family, patient was made DNR by Dr. Jhons. He had continued deterioration and required 3 vasopressors. He was noted to have worsening renal failure at that time and cardiac biomarkers were elevated however it was unclear if this was a precipitating event or as a result of his renal failure and demand ischemia during his hypotensive episode. Family was aware of his poor prognosis and elected to discontinue all pressor support. Patient was without spontaneous respiration, palpable pulse or audible heart tones. Pupils were fixed and dilated and he was pronounced at 0950. Body will be discharged to the home of family choice. - Time spent with patient Time with patient DS: Less than 30 minutes - Cause of Cause of : Cardiopulmonary arrest Diagnosis - Discharge Diagnosis (1) Cardiac arrest Status: Acute (2) Right lower extremity necrotic wounds Status: Acute (3) Hyperkalemia Status: Acute (4) Acute kidney injury Status: Acute (5) Hypertension Status: Chronic Specialty Discharge - Follow Up or Referrals Follow up with: James Manuel MD [Physician] - Discharge Plan - Discharge Data Disposition: - Discharge Medications No Action hydroCHLOROthiazide [Hydrochlorothiazide] 25 mg PO DAILY Hydrocodone/Acetaminophen [Hydrocodon-Acetaminoph 7.5-325] 1 - 2 each PO Q6H PRN PRN Reason: Pain Furosemide Tab [Lasix Tab] 40 mg PO DAILY Doxazosin Mesylate 8 mg PO DAILY Colchicine [Colcrys] 0.6 mg PO DAILY Aspirin/Caffeine [Bc Powder Packet] 1 each PO QOTHER DAY PRN PRN Reason: Pain Aspirin EC Tab 81 mg PO DAILY - Follow Up or Referral Follow Up: James Manuel MD [Physician] - - Forms/Instructions Exam - Constitutional Vitals: Period Temp Pulse Resp BP Sys/Sherman Pulse Ox Last 24 Hr 97.6 F-98.4 F 56-142 10-29 62-183/38-107 73-100 Discharge Results Procedures and tests throughout hospitalization: Pending Orders 08/19/16 12:19 Blood Culture Stat 08/20/16 Abscess Culture Routine Anaerobic Culture Routine 08/20/16 08:25 Tissue (Biopsy) Culture and GS Routine 08/21/16 21:00 MRSA Surveillence, Inf Control Routine 08/22/16 12:09 Lactic Acid Q3H 08/23/16 04:00 Comp Blood Count Auto Diff IN AM Comprehensive Metabolic Panel IN AM Labs on day of discharge: Labs from last 24 hours 08/22/16 08/22/16 08/22/16 09:05 06:45 06:37 WBC RBC Hgb Hct MCV MCH MCHC RDW Plt Count MPV Neut % (Auto) Lymph % (Auto) [place] % (Auto) Eos % (Auto) Baso % (Auto) Neut # (Auto) Lymph # (Auto) [place] # (Auto) Eos # (Auto) Baso # (Auto) Total Counted Immature Gran % Nucleated RBC % Immature Gran # Segmented Neutrophils Band Neutrophils Lymphocytes Monocytes Nucleated RBCs # Platelet Estimate Pappenheimer Bodies ABG pH 7.301 L ABG pCO2 31.7 L ABG pO2 448.0 H ABG HCO3 16.7 L ABG Total CO2 14.1 L ABG O2 Saturation 100.0 ABG Base Excess -9.8 L FiO2 Sodium Potassium Chloride Carbon Dioxide Anion Gap BUN Creatinine GFR Calculation BUN/Creatinine Ratio Glucose POC Glucose Calculated Osmolality Lactic Acid Calcium Magnesium Total Bilirubin AST ALT Alkaline Phosphatase Total Creatine Kinase 241 233 CK-MB (CK-2) 14.5 H 12.1 H CK and CKMB Interp 6.0 5.2 Troponin I 2.430 H D 1.760 H B-Natriuretic Peptide Total Protein Albumin Globulin Albumin/Globulin Ratio Urine Color Urine Appearance Urine pH Ur Specific [place] Urine Protein Urine Glucose (UA) Urine Ketones Urine Blood Urine Nitrate Urine Bilirubin Urine Urobilinogen Urine Leukocytes Urine Bacteria Ur Culture Indicated? 08/22/16 08/22/16 08/22/16 02:40 02:24 02:24 WBC RBC Hgb Hct MCV MCH MCHC RDW Plt Count MPV Neut % (Auto) Lymph % (Auto) [place] % (Auto) Eos % (Auto) Baso % (Auto) Neut # (Auto) Lymph # (Auto) [place] # (Auto) Eos # (Auto) Baso # (Auto) Total Counted Immature Gran % Nucleated RBC % Immature Gran # Segmented Neutrophils Band Neutrophils Lymphocytes Monocytes Nucleated RBCs # Platelet Estimate Pappenheimer Bodies ABG pH ABG pCO2 ABG pO2 ABG HCO3 ABG Total CO2 ABG O2 Saturation ABG Base Excess FiO2 Sodium 140 Potassium 4.7 Chloride 107 Carbon Dioxide 16 L Anion Gap 21.7 H BUN 52 H Creatinine 2.50 H GFR Calculation 34 BUN/Creatinine Ratio 20.00 Glucose 167 H POC Glucose Calculated Osmolality 296.4 Lactic Acid 10.7 H Calcium 7.6 L Magnesium Total Bilirubin 0.80 AST 219 H ALT 65 H Alkaline Phosphatase 142 H Total Creatine Kinase CK-MB (CK-2) CK and CKMB Interp Troponin I B-Natriuretic Peptide Total Protein 4.8 L Albumin 1.8 L Globulin 3.0 Albumin/Globulin Ratio 0.6 L Urine Color Mona Urine Appearance Cloudy Urine pH 5.0 Ur Specific [place] 1.015 Urine Protein 30 Urine Glucose (UA) Negative Urine Ketones Negative Urine Blood Negative Urine Nitrate Negative Urine Bilirubin Negative Urine Urobilinogen 2.0 H Urine Leukocytes Negative Urine Bacteria Many Ur Culture Indicated? Not indicated 08/22/16 08/22/16 08/22/16 02:23 01:25 01:24 WBC 13.6 H D RBC 3.29 L Hgb 10.4 L Hct 32.9 L MCV 100.0 MCH 32 MCHC 31.6 L RDW 14.2 Plt Count 138 MPV 12.8 H Neut % (Auto) 80.4 H Lymph % (Auto) 9.7 L [place] % (Auto) 4.8 Eos % (Auto) 0.4 Baso % (Auto) 0.2 Neut # (Auto) 11.0 H Lymph # (Auto) 1.3 L [place] # (Auto) 0.7 Eos # (Auto) 0.1 Baso # (Auto) 0.0 Total Counted 100 Immature Gran % 4.5 Nucleated RBC % 0.0 Immature Gran # 0.61 Segmented Neutrophils 86 H Band Neutrophils 2 Lymphocytes 11 L Monocytes 1 L Nucleated RBCs # 0.00 Platelet Estimate Normal Pappenheimer Bodies Geoscience Professor ABG pH 7.329 L ABG pCO2 24.8 L ABG pO2 430.5 H ABG HCO3 12.8 L ABG Total CO2 13.5 L ABG O2 Saturation 99.5 ABG Base Excess -11.4 L FiO2 100.00 Sodium Potassium Chloride Carbon Dioxide Anion Gap BUN Creatinine GFR Calculation BUN/Creatinine Ratio Glucose POC Glucose 174 H Calculated Osmolality Lactic Acid Calcium Magnesium Total Bilirubin AST ALT Alkaline Phosphatase Total Creatine Kinase CK-MB (CK-2) CK and CKMB Interp Troponin I B-Natriuretic Peptide Total Protein Albumin Globulin Albumin/Globulin Ratio Urine Color Urine Appearance Urine pH Ur Specific [place] Urine Protein Urine Glucose (UA) Urine Ketones Urine Blood Urine Nitrate Urine Bilirubin Urine Urobilinogen Urine Leukocytes Urine Bacteria Ur Culture Indicated? 08/21/16 08/21/16 21:33 21:33 WBC RBC Hgb Hct MCV MCH MCHC RDW Plt Count MPV Neut % (Auto) Lymph % (Auto) [place] % (Auto) Eos % (Auto) Baso % (Auto) Neut # (Auto) Lymph # (Auto) [place] # (Auto) Eos # (Auto) Baso # (Auto) Total Counted Immature Gran % Nucleated RBC % Immature Gran # Segmented Neutrophils Band Neutrophils Lymphocytes Monocytes Nucleated RBCs # Platelet Estimate Pappenheimer Bodies ABG pH ABG pCO2 ABG pO2 ABG HCO3 ABG Total CO2 ABG O2 Saturation ABG Base Excess FiO2 Sodium 138 Potassium 5.1 Chloride 106 Carbon Dioxide 21 Anion Gap 16.1 H BUN 51 H Creatinine 2.00 H GFR Calculation 45 BUN/Creatinine Ratio 25.00 H Glucose 116 H POC Glucose Calculated Osmolality 289.7 Lactic Acid Calcium 8.1 L Magnesium 2.0 Total Bilirubin 0.50 AST 15 ALT 9 L Alkaline Phosphatase 101 Total Creatine Kinase CK-MB (CK-2) CK and CKMB Interp Troponin I B-Natriuretic Peptide 1190 H Total Protein 5.0 L Albumin 1.9 L Globulin 3.1 Albumin/Globulin Ratio 0.6 L Urine Color Urine Appearance Urine pH Ur Specific [place] Urine Protein Urine Glucose (UA) Urine Ketones Urine Blood Urine Nitrate Urine Bilirubin Urine Urobilinogen Urine Leukocytes Urine Bacteria Ur Culture Indicated? Preliminary micro results at discharge 08/20/16 Unknown Abscess Culture - Preliminary Leg - Rt Lower Gram Negative Rods Gram Negative Rods#2 Anaerobic Culture - Preliminary 08/20/16 08:25 Tissue Culture - Preliminary Leg - Rt Lower Gram Negative Rods Gram Negative Rods#2 08/19/16 12:19 Blood Culture - Preliminary Blood No growth at 1 day 08/19/16 12:19 Blood Culture - Preliminary Blood No growth at 1 day DS: Provider Date of admission: 08/19/16 13:43 Primary care physician: . [place] PCP Attending physician on admission: Roby Salmon III Consults: 08/19/16 14:41 Consult to Pharmacy [CONS] Routine Reason for Pharmacy Consult: Dose/Manage Vancomycin 08/19/16 15:43 Consult to Anesthesiology [CONS] Routine Consulting Provider: Reason for Anesthesiology: Pre-op Clearance 08/22/16 02:13 Consult to Physician [CONS] Routine Comment: Consulting Provider: Consult to Specialist Group: Pulmonology When should Consulting Provider be notified: In am Discharging clinician: David Vaughn Expected date of discharge: 08/22/16
[2016-08-22] MEDS ORDERED: SODIUM CHLORIDE 0.9% 1,000 ML IV SCH (10:10)
[2016-08-22] MEDS: COLCHICINE 0.6 MG TABLET PO SCH (11:06)
[2016-08-22] MEDS: ASPIRIN EC 81 MG TABLET PO SCH (11:06)
[2016-08-22] MEDS: CEFTAROLINE 400 MG in SODIUM CHLORIDE 0.9% 100 ML IV SCH (11:07)
[2016-08-22 11:20] VITALS: BP 0/0
--- NOTE | 2016-08-22 14:32 | EKG Report ---
Stationary ECG Study [facility] Test Date: 08/22/2016 7:27:35 AM Pat Name: EDD GARDNER Department: Room: 123 Gender: M Security Expert: YOKASTA : [id number] Requested by: Lisandro Chavez Order Number: [id number] Reading MD: LIN ARROYO Intervals [place] Rate: 120 P: 20 HI: 174 QRS: -10 QRSD: 102 T: -78 QT: 308 QTc: 379 Interpretive Statements SINUS TACHYCARDIA WITH FREQUENT VENTRICULAR PREMATURE COMPLEXES WITH OCCASIONAL SUPRAVENTRICULAR PREMATURE COMPLEXES INCOMPLETE RIGHT BUNDLE BRANCH BLOCK ST DEVIATION AND MODERATE T-WAVE ABNORMALITY, CONSIDER LATERAL ISCHEMIA Electronically Signed On 08-22-16 15:52:38 CDT by LIN ARROYO [email or web address]
== END 2016-08-22 09:50 | disposition expired | DRG 264 ==
LOC: EDUNIT# → EDBD → N.ED 11:46 → N.EDINP 13:43 → SUATTDRO 13:43 → N.EDINP 14:23 → N.3E 14:30 → N.CC 08-21 20:43
PROVIDERS: ADMIT Internal Medicine; ATTEND Hospitalist